=== PATIENT | male | born 1965 | race Caucasian/White ===

== ENCOUNTER → 2016-07-21 | Outpatient (CLI) | payer OTHER | LOC: OD 15:04 | PROVIDERS: ATTEND Family Medicine | DX: M25.562 Pain in left knee (principal) ==

== ENCOUNTER 2018-03-20 08:13 | Day surgery (SDC) | payer OTHER ==
[~2018-03-20 08:13] MED LIST: PROPOFOL INJ 200 MG/20 ML VIAL IV ONE
[2018-03-20 10:07] VITALS: BP 124/81
--- NOTE | 2018-03-20 14:19 | Operative Report ---
Operative Report DATE OF SURGERY: 03/20/18 Operative Report: The risks, benefits and alternatives of the procedure including the risk of bleeding, perforation requiring surgery are explained to the patient in detail and informed consent is obtained. The patient is placed in the left, lateral decubital position. Timeout was called. Propofol medication is administered. Rectal examination is done which did not reveal any masses, tears or fissures. An Olympus videoscope was introduced into the patient's rectum. The scope was then carefully advanced all the way to the cecum. Prep was good. The cecum was identified by the usual anatomical landmarks including the ileocecal valve as well as the appendiceal office. Photodocumentation is obtained. The scope was then sequentially pulled back via the various segments of the colon including the ascending colon, hepatic flexure, transverse colon, splenic flexure, descending colon and finally into the rectosigmoid portions of the colon. Retroflexion maneuver is performed. The risks benefits and alternatives of the procedure explained to the patient in detail and informed consent is obtained.A GIF Olympus video scope was inserted into the patient's mouth and hypopharynx, the esophagus is identified intubated and insufflated, the scope was then advanced through the esophagus stomach and duodenum, retroflexion maneuver is done the esophagus stomach and first and second portions of the duodenum examined PREOPERATIVE DIAGNOSIS: Gastroesophageal reflux disease with a previous history of Tellez's esophagus. Colorectal cancer screening POSTOPERATIVE DIAGNOSIS: Colon polyp on large stalk that is removed via snare polypectomy and retrieved. 2 endoclips placed to reduce the risk of post polypectomy bleeding. Internal hemorrhoids. Tellez's esophagus that is treated with radiofrequency ablation. Gastritis status post biopsy rule out Helicobacter pylori OPERATION: Colonoscopy with snare polypectomy. EGD with radiofrequency ablation. EGD with biopsy SURGEON: BJ BENOIT ANESTHESIA: LMAC TISSUE REMOVED OR ALTERED: As noted above. COMPLICATIONS: None. ESTIMATED BLOOD LOSS: None. INTRAOPERATIVE FINDINGS: As noted above. PROCEDURE: Patient tolerated the procedure well. No immediate postprocedure comp occasions are noted. Patient discharged in good condition. Discharge date 03/20/2018. Discharge diet: Regular. Discharge activity: Regular. 2-3-week follow-up to discuss findings. Patient is instructed to call the office or proceed to the emergency room should there be any further proximal questions. 3-year surveillance colonoscopy. Wait on the pathology.
== END 2018-03-20 10:00 | disposition home or self-care (01) ==
LOC: END 08:13
PROVIDERS: ATTEND Internal Medicine Gastroenterology
DX: Z12.11 Encounter for screening for malignant neoplasm of colon (principal); D12.4 Benign neoplasm of descending colon; K29.50 Unspecified chronic gastritis without bleeding; K64.8 Other hemorrhoids; K22.70 Barrett's esophagus without dysplasia; K21.9 Gastro-esophageal reflux disease without esophagitis; E78.2 Mixed hyperlipidemia; K44.9 Diaphragmatic hernia without obstruction or gangrene; Z79.899 Other long term (current) drug therapy; Z88.5 Allergy status to narcotic agent; Z79.1 Long term (current) use of non-steroidal anti-inflammatories (NSAID)
CPT/HCPCS: 43270; 43239; 45385; 88342 ×2; 88305 ×2; J2704; 813